=== PATIENT | female | born 1970 | race Asian ===

== ENCOUNTER 2020-07-18 14:54 | Outpatient (CLI) | payer OTHER ==
[2020-07-19 04:50] LABS: SARS-CoV-2 PCR by NAA Not Detected (NotDetected)
== END 2020-07-18 14:55 | disposition home or self-care (01) ==
LOC: CSHLAB 14:54
PROVIDERS: ATTEND Internal Medicine Gastroenterology
DX: Z20.822 Contact with and (suspected) exposure to COVID-19 (principal); R10.9 Unspecified abdominal pain
CPT/HCPCS: 87635; U0003; U0005

== ENCOUNTER 2020-07-21 05:45 | Day surgery (SDC) | payer OTHER ==
[2020-07-20 12:10] VITALS: BMI 22.0
[2020-07-21] MEDS ORDERED: Lidocaine 1% MPF 2 ML VIAL ONE (06:16)
[2020-07-21] MEDS ORDERED: PROPOFOL 40 ML ONE (06:53)
[2020-07-21] MEDS ORDERED: Lidocaine 4% PF 5 ML AMP ONE (06:53)
== END 2020-07-21 08:05 | disposition home or self-care (01) ==
LOC: CSHSDC 05:45
PROVIDERS: ATTEND Internal Medicine Gastroenterology
DX: K29.30 Chronic superficial gastritis without bleeding (principal); R10.9 Unspecified abdominal pain; E03.9 Hypothyroidism, unspecified; Z90.710 Acquired absence of both cervix and uterus
CPT/HCPCS: 88305; J2704

== ENCOUNTER 2021-11-08 13:45 | Outpatient (CLI) | payer BC | END 2021-11-08 13:46 | disposition home or self-care (01) | LOC: CSHMAMMO 13:45 | PROVIDERS: ATTEND Family Medicine | DX: Z12.31 Encounter for screening mammogram for malignant neoplasm of breast (principal) | CPT/HCPCS: 77063; 77067 ==

== ENCOUNTER 2022-01-03 07:41 | Day surgery (SDC) | payer BC ==
[2022-01-02 10:00] VITALS: BMI 24.4
[2022-01-03] MEDS ORDERED: PROPOFOL 20 ML ONE (09:56)
[2022-01-03] MEDS ORDERED: Fentanyl 100 MCG/2 ML VIAL ONE (09:56)
== END 2022-01-03 10:56 | disposition home or self-care (01) ==
LOC: CSHSDC 07:41
PROVIDERS: ATTEND Internal Medicine Gastroenterology
PROC: 0DJ08ZZ Inspection of Upper Intestinal Tract, Via Natural or Artificial Opening Endoscopic (ICD-10-PCS; principal; 2022-01-03)
DX: R10.13 Epigastric pain (principal); K44.9 Diaphragmatic hernia without obstruction or gangrene; K21.9 Gastro-esophageal reflux disease without esophagitis; E03.9 Hypothyroidism, unspecified; D21.9 Benign neoplasm of connective and other soft tissue, unspecified; Z79.899 Other long term (current) drug therapy
CPT/HCPCS: J2704; J3010